=== PATIENT | male | born 1990 ===

== ENCOUNTER 2024-02-04 13:41 | Emergency (ER) | payer OTHER ==
[2024-02-04] MEDS: Ketorolac 30 MG/ML SDV IM STA (14:50)
[2024-02-04] MEDS: Orphenadrine 60 MG/2 ML Inj IM ONE (14:52)
== END 2024-02-04 14:55 | disposition home or self-care (01) ==
LOC: CC.ED 13:41
DX: S40.022A Contusion of left upper arm, initial encounter (principal); W22.8XXA Striking against or struck by other objects, initial encounter
CPT/HCPCS: 73030-LT; 73110-LT; 96372; 99283; J1885; J2360